=== PATIENT | male | born 1960 | race Caucasian/White ===

== ENCOUNTER 2019-11-22 07:59 | Outpatient (CLI) | payer BC ==
--- NOTE | 2019-11-22 08:17 | RAD ---
XR Chest Pa Lat STANDARD HISTORY: Cough COMPARISON: 03/22/2005 FINDINGS: The heart size is enlarged. There is continued elevation of the right hemidiaphragm. The terrance ngs are without focal areas of consolidation, pneumothorax or pleural effusions. IMPRESSION: No radiographic evidence of acute cardiopulmonary process.
== END 2019-11-22 08:00 | disposition home or self-care (01) ==
LOC: BICRAD 07:59
PROVIDERS: ATTEND Family Medicine
DX: R05 Cough (principal)
CPT/HCPCS: 71046